=== PATIENT | male | born 1955 | race Caucasian/White ===

== ENCOUNTER 2023-01-12 07:01 | Day surgery (SDC) | payer MEDICARE, BC ==
[~2023-01-12 07:01] MED LIST: Lactated Ringers 1,000 ML IV SCH; Lidocaine 1%/Sod Bicarbonate in NS 8.4% 1 ML Syringe IDERM PRN; Sodium Chloride 0.9% 10 ML Syringe FLUSH PRN; Sodium Chloride 0.9% 10 ML Syringe FLUSH SCH
[2023-01-12] MEDS ORDERED: Lidocaine 1% 2 ML ONE (07:06)
[2023-01-12] MEDS ORDERED: fentaNYL 100 MCG/2 ML SDV ONE (07:06)
[2023-01-12] MEDS ORDERED: Rocuronium 50 MG/5 ML Vial ONE (07:06)
[2023-01-12] MEDS ORDERED: Propofol 200 MG/20 ML SDV ONE (07:07)
[2023-01-12] MEDS ORDERED: Ondansetron 4 MG/2 ML SDV IVPUSH PRN (07:28)
[2023-01-12] MEDS ORDERED: fentaNYL 100 MCG/2 ML SDV IVPUSH PRN (07:28)
[2023-01-12] MEDS ORDERED: HYDROmorphone 0.5 MG/0.5 ML Syringe IVPUSH PRN (07:28)
[2023-01-12] MEDS ORDERED: Lidocaine 1% with EPINEPHrine 1:100,000 20 ML MDV ONE (07:29)
[2023-01-12] MEDS ORDERED: Bupivacaine 0.5%/EPINEPHrine 1:200,000 50 ML MDV ONE (07:29)
[2023-01-12] MEDS ORDERED: Ondansetron 4 MG/2 ML SDV ONE (08:25)
[2023-01-12] MEDS ORDERED: Sugammadex Sodium 200 MG/2 ML VIAL ONE (08:25)
[2023-01-12] MEDS ORDERED: ePHEDrine 50 MG/ML SDV ONE (08:26)
[2023-01-12] MEDS ORDERED: Bacitracin Oint 15 GM Tube ONE (08:54)
== END 2023-01-12 10:41 | disposition home or self-care (01) ==
LOC: JD.SDS 07:01
PROVIDERS: ATTEND Surgery
DX: D17.1 Benign lipomatous neoplasm of skin and subcutaneous tissue of trunk (principal); I10 Essential (primary) hypertension; Z88.0 Allergy status to penicillin
CPT/HCPCS: 21931; A9270; J2405; J2704; J3010; J3490; J7120